=== PATIENT | male | born 1960 | race Caucasian/White ===

== ENCOUNTER 2024-03-04 12:25 | Emergency (ER) | payer OTHER ==
[~2024-03-04] VITALS: Ht 165.1 cm; Wt 68.2 kg
[2024-03-04 13:55] VITALS: TEMP 98.1
[2024-03-04] MEDS: ketorolac trometh 15mg/ml vial 15 MG/ML ML IM ONE (15:50)
[2024-03-04 15:55] VITALS: BP 183/112; PULSE 64; RESP 16; O2SAT 100
== END 2024-03-04 15:57 | disposition home or self-care (01) ==
LOC: ER 12:25
DX: S16.1XXA Strain of muscle, fascia and tendon at neck level, initial encounter (principal); F07.81 Postconcussional syndrome; R11.0 Nausea; V89.2XXA Person injured in unspecified motor-vehicle accident, traffic, initial encounter; Y93.89 Activity, other specified; Y92.89 Other specified places as the place of occurrence of the external cause; Y99.8 Other external cause status
CPT/HCPCS: 70450; 72125; 96372; 99285; J1885